=== PATIENT | male | born 1980 | race African-American/Black ===

== ENCOUNTER 2017-05-28 01:34 | Emergency (ER) | payer OTHER ==
[~2017-05-28] VITALS: Ht 165.1 cm; Wt 63.5 kg
[~2017-05-28 01:34] MED LIST: SULF1TAB24 PO
--- NOTE | 2017-05-28 01:45 | PHYS DOC ---
General Chief Complaint: RUQ pain Stated Complaint: RUQ pain Time Seen by MD: 01:38 Source: patient Exam Limitations: no limitations Problems: History of Present Illness Initial Comments Patient is a 37-year-old male who comes to the ED complaining of right upper quadrant pain. Patient states that yesterday () morning he had donuts for breakfast. He states that he developed right upper quadrant pain around noon. Since that time he states the right upper quadrant pain has worsened radiating around to his back. He states the pain is worse with deep breaths and certain movements relieved somewhat by rest. He's had nausea but no emesis denies bowel or bladder symptoms. Denies travel or bad food exposure. Patient denies any trauma or exertional activities. Pain is described as sharp and achy 05/03. Patient has extensive history of alcoholism has history of alcohol-induced seizures, is also an abuser of tobacco and has been positive for methamphetamine and marijuana in the ED in the past. Timing/Duration: 24 hours Severity: moderate Modifying Factors: worse with movement, improves with rest Associated Symptoms: nausea/vomiting, other Allergies: Coded Allergies: No Known Drug Allergies (Unverified , 11/17/16) Past Medical History Medical History: seizure, other (alcoholism, polysubstance abuse, alcohol induced seizures) Surgical History: noncontributory Social History Smoker: cigarettes, cigar, chew Alcohol: heavy Drugs: marijuana (methamphetamine) Review of Systems Constitutional: denies chills, denies diaphoresis, denies fever, denies malaise Respiratory: denies cough, denies shortness of breath Cardiovascular: denies chest pain, denies palpitations, denies syncope Gastrointestinal: abdominal pain, denies constipation, denies diarrhea, nausea , denies vomiting Genitourinary: denies dysuria, denies frequency, denies hematuria Musculoskeletal: see HPI, denies joint swelling, denies neck pain Psychiatric/Neurological: denies headache, denies numbness, denies paresthesia Hematologic/Lymphatic: denies blood clots, denies easy bleeding, denies easy bruising Physical Exam General Appearance: severe distress (hysterical, writhing, moaning as if in severe pain) Eyes: bilateral eye normal inspection, bilateral eye PERRL, bilateral eye EOMI Ear, Nose, Throat: hearing grossly normal, normal ENT inspection, normal pharynx Neck: non-tender, supple Respiratory: normal breath sounds, no respiratory distress Cardiovascular: normal peripheral pulses, regular rate, rhythm Gastrointestinal: soft (ND, RUQ TTP no r/g/mass, BS normal) Back: no CVA tenderness, no vertebral tenderness Extremities: non-tender, normal inspection 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 Interpreted by Dr Negron. AAS: no acute cardiopulmonary process, nonspecific nonobstructive bowel gas pattern, retained stool. Interpreted by Dr Negron 0316: Time in department 1h 45 min. US not yet resulted, pt will have prolonged ED course due to radiology delay. Labs unremarkable, UDS +amph/methamph PATIENT: CELSO WALKER ACCOUNT: [id number] : 1980 LOCATION: ER AGE: 37 SEX: M EXAM STATUS: REG ER ORD. PHYSICIAN: CLAUDE NEGRON DO REASON: RUQ abdominal pain PROCEDURE: ABDOMEN LTD Limited abdomen ultrasound HISTORY: Right upper quadrant abdominal pain radiating to the back and nausea FINDINGS: Bowel gas shadowing limits visualization of the tail the pancreas and segments of the pancreas head. The visualized segments of the pancreas, proximal abdominal aorta and proximal IVC are normal. Normal directional blood flow the portal vein. Mild increased liver echogenicity likely fatty, no liver masses documented. Right renal length 13.7 cm, no evidence of right renal mass or hydronephrosis. Spleen and left kidney were not evaluated. No gallstones, gallbladder wall thickening, pericholecystic fluid or sonographic Faith sign. No biliary ductal dilation the common bile duct has a diameter 4 mm. IMPRESSION: Possible sonographic changes of fatty liver. Otherwise negative exam. Electronically signed by: Herbert Arias MD (05/28/2017 3:40 AM) [facility] DICTATED AND SIGNED BY: HERBERT ARIAS MD DATE: 05/28/17 0337 CC: PCP,NO; CLAUDE NEGRON DO ~ IMPRESSIONS: Amphetamine/methamphetamine abuse Abdominal Discomfort Constipation etoh/tobacco abuse 0357: I rechecked pt found him sleeping. I notified him of findings, fatty liver/methamphetamine abuse/constipation. Pt admits to meth use, I discussed tx plan he expressed agreement/understanding. He was encouraged to discontinue all substance abuse. Departure Time of Disposition: 03:50 Disposition: 01 HOME, SELF-CARE Diagnosis: amph/methamphetamine abuse, constipation, polysubs Condition: STABLE Patient Instructions: Constipation, Adult, [id number], Methamphetamine Abuse , Complications, Smoking Cessation Additional Instructions: Stop smoking, seek medical assistance if necessary. Aggressive hydration with gatorade, water. Discontinue CLAUDE NEGRON DO May 28, 2017 01:45
--- NOTE | 2017-05-28 02:27 | EKG ---
[address] [address] Test Date: 2017-05-28 Test Time: 02:16:22 Pat Name: CELSO WALKER Department: Room: Gender: M Equipment Washer: : 1980 Requested By: CLAUDE NEGRON Order Number: [id number] Reading MD: Measurements Intervals [place] Rate: 69 P: 45 FL: 128 QRS: 62 QRSD: 88 T: 36 QT: 374 QTc: 402 Interpretive Statements SINUS RHYTHM NORMAL ECG RI6.01 Unconfirmed report No previous ECG available for comparison
[2017-05-28] MEDS ORDERED: KETOROLAC 30 MG/ML VIAL. IV ONE (02:30)
[2017-05-28] MEDS ORDERED: fentaNYL PF 100 MCG/2 ML VIAL IV ONE (02:30)
[2017-05-28] MEDS ORDERED: ONDANSETRON PF 4 MG/2 ML VIAL. IV ONE (02:30)
[2017-05-28] MEDS ORDERED: IV NORMAL SALINE 1,000ML 1,000 ML IV SCH (02:30)
[2017-05-28 03:04] LABS: BASO # 0.1 x10^3/uL (0.0-0.2); BASO % 1 % (0-3); EOS # 0.3 x10^3/uL (0.0-0.7); EOS % 4 % (0-3); HEMATOCRIT 43.8 % (39.0-53.0); HEMOGLOBIN 14.8 g/dL (13.0-17.5); LYMPH # 2.4 x10^3/uL (1.0-4.8); LYMPH % 28 % (24-48); MEAN CORPUSCULAR HEMOGLOBIN 31 pg (25-35); MEAN CORPUSCULAR HGB CONC 34 g/dL (31-37); MEAN CORPUSCULAR VOLUME 90 fL (79-100); MONO # 0.8 x10^3/uL (0.0-1.1); MONO % 9 % (0-9); NEUT # 4.8 x10^3uL (1.8-7.7); NEUT % 57 % (31-73); PLATELET COUNT 268 x10^3/uL (140-400); RED BLOOD COUNT 4.85 x10^6/uL (4.30-5.70); RED CELL DISTRIBUTION WIDTH 12.8 % (11.5-14.5); WHITE BLOOD COUNT 8.4 x10^3/uL (4.0-11.0)
[2017-05-28 03:30] LABS: ALBUMIN 3.6 g/dL (3.4-5.0); ALBUMIN/GLOBULIN RATIO 1.1 (1.0-1.7); CALCIUM 8.4 mg/dL (8.5-10.1); CREATININE 0.9 mg/dL (0.7-1.3); GFR 113.7; POTASSIUM 3.8 mmol/L (3.5-5.1); TOTAL BILIRUBIN 0.6 mg/dL (0.2-1.0); TOTAL PROTEIN 6.8 g/dL (6.4-8.2)
[2017-05-28 03:38] LABS: BARBITURATES NEG (NEG); BENZODIAZEPINES NEG (NEG); CANNABINOIDS NEG (NEG); COCAINE NEG (NEG); METHADONE NEG (NEG); OPIATES NEG (NEG); PHENCYCLIDINE NEG (NEG)
[2017-05-28 03:40] LABS: COLOR,URINE YELLOW
[2017-05-28 03:41] LABS: BACTERIA,URINE FEW /HPF (0-FEW); BILIRUBIN,URINE NEG (NEG); CLARITY,URINE CLEAR; GLUCOSE,URINE NEG (NEG); NITRITE,URINE NEG (NEG); RBC,URINE 0 /HPF (0-2); SQUAMOUS EPITHELIAL CELL,UR OCC /LPF; UROBILINOGEN,URINE 0.2 mg/dL (0.2 mg/dL); WBC,URINE OCC /HPF (0-4)
--- NOTE | 2017-05-28 03:44 | RAD ---
Limited abdomen ultrasound HISTORY: Right upper quadrant abdominal pain radiating to the back and nausea FINDINGS: Bowel gas shadowing limits visualization of the tail the pancreas and segments of the pancreas head. The visualized segments of the pancreas, proximal abdominal aorta and proximal IVC are normal. Normal directional blood flow the portal vein. Mild increased liver echogenicity likely fatty, no liver masses documented. Right renal length 13.7 cm, no evidence of right renal mass or hydronephrosis. Spleen and left kidney were not evaluated. No gallstones, gallbladder wall thickening, pericholecystic fluid or sonographic Faith sign. No biliary ductal dilation the common bile duct has a diameter 4 mm. IMPRESSION: Possible sonographic changes of fatty liver. Otherwise negative exam. Electronically signed by: Herbert Arias MD (05/28/2017 3:40 AM) [facility]
[2017-05-28 03:45] LABS: AMPHETAMINE/METHAMPHETAMINE POS (NEG)
[2017-05-28] MEDS ORDERED: DICY20TA3 PO (03:52)
[2017-05-28] MEDS ORDERED: POLY17PO5 PO (03:52)
[2017-05-28 04:15] VITALS: BP 153/83
[2017-05-28] MEDS ORDERED: DICYCLOMINE HCL 20 MG TABLET PO ONE (04:30)
[2017-05-28] MEDS ORDERED: POLYETHYLENE GLYCOL 3350 17 GM PACKET. PO ONE (04:30)
--- NOTE | 2017-05-28 08:21 | RAD ---
Acute abdomen series with chest, 3 views, 05/28/2017: History: Right-sided pain and nausea There is a moderate amount of stool in the colon, particularly in the right colon. No free air is seen in the abdomen. There is no evidence of organomegaly or abnormal abdominal calcification. The heart size is normal. The lungs are clear. There is no evidence of pleural fluid. IMPRESSION: Increased stool in the colon.
== END 2017-05-28 04:20 | disposition home or self-care (01) ==
LOC: ER 01:34
DX: K59.00 Constipation, unspecified (principal); F15.10 Other stimulant abuse, uncomplicated; F19.10 Other psychoactive substance abuse, uncomplicated; F17.210 Nicotine dependence, cigarettes, uncomplicated; F12.10 Cannabis abuse, uncomplicated; F10.10 Alcohol abuse, uncomplicated
CPT/HCPCS: 36415; 74022; 76705; 80053; 80307; 81001; 82550; 83690; 84484; 85027; 87086; 93005; 96361; 96374; 96375; 99285; G0480; J1885; J2405; J3010; G0479; J7030